=== PATIENT | male | born 1965 | race Caucasian/White ===

== ENCOUNTER 2024-02-19 15:48 | Emergency (ER) | payer OTHER ==
[2024-02-19 16:20] VITALS: BP 161/106; PULSE 82; RESP 20; TEMP 98.4; BMI 25.0
[2024-02-19] MEDS ORDERED: ACETAMINOPHEN 325 MG TABLET (FP) ONE (17:20)
[2024-02-19] MEDS ORDERED: ALBUTEROL SO4 2.5/IPRATROPIUM 0.5 INH SOL 3 ML VIAL.NEB. NEB ONE ×2 (17:21→17:57)
[2024-02-19] MEDS ORDERED: predniSONE 20 MG TABLET (UD) ONE (17:21)
[2024-02-19] MEDS: ACETAMINOPHEN 325 MG TABLET (FP) PO ONE (17:28)
[2024-02-19] MEDS: predniSONE 20 MG TABLET (UD) PO ONE (17:28)
[2024-02-19] MEDS: ALBUTEROL SO4 2.5/IPRATROPIUM 0.5 INH SOL 3 ML VIAL.NEB. NEB ONE ×2 (17:28→17:56)
== END 2024-02-19 18:28 | disposition home or self-care (01) ==
LOC: FER 15:48
PROC: 3E0F7GC Introduction of Other Therapeutic Substance into Respiratory Tract, Via Natural or Artificial Opening (ICD-10-PCS; principal; 2024-02-19)
PROC: 3E0F7GC Introduction of Other Therapeutic Substance into Respiratory Tract, Via Natural or Artificial Opening (ICD-10-PCS; 2024-02-19)
DX: J44.1 Chronic obstructive pulmonary disease with (acute) exacerbation (principal); F17.200 Nicotine dependence, unspecified, uncomplicated; Z20.822 Contact with and (suspected) exposure to COVID-19
CPT/HCPCS: 0241U-QW; 71046-TC-FY; 99284-25